=== PATIENT | male | born 1945 | race Caucasian/White ===

== ENCOUNTER 2018-08-22 17:17 | Inpatient (IN) | payer BC, OTHER ==
[~2018-08-22] VITALS: Ht 175.3 cm; Wt 71.4 kg
[2018-08-22 17:35] VITALS: Ht 175.3 cm; Wt 71.4 kg
--- NOTE | 2018-08-22 18:10 | NUR ---
PT AWAKE AND ALERT. PT C/O "WOMEN'S TOY" IN RECTUM. NAD. RESP E/U.
--- NOTE | 2018-08-22 18:47 | NUR ---
DR ADLER AT BEDSIDE FOR MSE
[2018-08-22 19:15] LABS: BASOPHIL % 0.3 % (0-2); PLATELET COUNT 235 x10^3mcL (130-400); RED CELL DISTRIBUTION WIDTH 13.3 % (11.5-14.5)
--- NOTE | 2018-08-22 19:16 | NUR ---
RECEIVED REPORT FROM MICA HDZ FOR FURTHER CARE OF PATIENT.
--- NOTE | 2018-08-22 19:16 | NUR ---
report given to edel mold shifter nurse to assume care of pt
[2018-08-22 19:36] LABS: ALBUMIN 3.9 g/dL (3.4-5.0); ALKALINE PHOSPHATASE 91 U/L (46-116); ALT/SGPT 33 U/L (16-63); AST/SGOT 39 U/L (15-37); BILIRUBIN TOTAL 1.95 mg/dL (0.20-1.00); CALCIUM 9.5 mg/dL (8.5-10.1); CARBON DIOXIDE 24.3 mmol/L (21-32); CHLORIDE SERUM 102 mmol/L (98-107); CREATININE SERUM 0.9 mg/dL (0.7-1.3); GLUCOSE SERUM 130 mg/dL (74-106); POTASSIUM SERUM 3.5 mmol/L (3.5-5.1); SODIUM SERUM 137 mmol/L (136-145); TOTAL PROTEIN, SERUM 7.9 g/dL (6.4-8.2)
--- NOTE | 2018-08-22 20:22 | NUR ---
PATIENT AMBULATED TO BATHROOM- GAIT STEADY
[2018-08-22 21:46] LABS: MAGNESIUM 2.3 mg/dL (1.8-2.4); PHOSPHOROUS 3.4 mg/dL (2.5-4.9)
[2018-08-22 22:03] VITALS: BP 170/95
--- NOTE | 2018-08-22 22:05 | NUR ---
RECEIVED PT FROM ED VIA NINFA. ORIENTED PT TO ROOM AND SURROUNDINGS. IV NOTED TO LAC PATENT AND INTACT. INSTRUCTED PT ON THE USE OF CALL LIGHT FOR ASSISTANCE. ENDORSE PT TO PRIMARY NURSE WAI
--- NOTE | 2018-08-22 22:27 | NUR ---
PATIENT COMPLAINED OF RECTAL PAIN RATED AT 6/10 MEDICATED PRN.
[2018-08-22 23:00] VITALS: BP 105/68
--- NOTE | 2018-08-22 23:00 | NUR ---
PATIENT BP UPON ARRIVAL TO THE FLOOR WAS ON THE HIGH SIDE, PATIENT HAD COMPLAINED OF RECTAL PAIN RATED BETWEEN 5-6/10, MEDICATED WITH NORCO AND WAS RECHECKED AFTERWARDS WAS 105/68, HR=78BPM. RECORDED . WILL CONTINUE TO MONITOR.
--- NOTE | 2018-08-23 01:38 | NUR ---
VOIDED PER URINAL, UA COLLECTED SEND TO LAB.
[2018-08-23 02:34] LABS: microscopic required? YES; urine erythrocyte NEGATIVE (NEGATIVE)
[2018-08-23 02:42] LABS: AMPHETAMINE QUAL UR NONE DETECTED (See below)
[2018-08-23 05:14] VITALS: BP 132/79
--- NOTE | 2018-08-23 05:32 | NUR ---
CHLORHEXIDINE BATH ADMINISTERED BY CIRCULATOR THIS TIME, PATIENT INFORMED ABOUT PURPOSE OF BATH.
--- NOTE | 2018-08-23 06:33 | NUR ---
PATIENT HAD A RESTFUL NIGHT, WAS MEDICATED X1 WITH NORCO AND RECEIVED RELIEF, HAD BEEN NPO [facility], PATIENT AWARE ABOUT SURGERY THIS AM, WANTS TO SPEAK WITH SURGEON BEFORE SIGNING CONSENT. IV SITE NO SIGN OF INFILTRATION. SAFETY PRECAUTIONS MAINTAINED. WILL ENDORSED CONTINUITY OF CARE TO INCOMING NURSE.
[2018-08-23 06:40] LABS: CALCIUM 8.8 mg/dL (8.5-10.1); CARBON DIOXIDE 25.8 mmol/L (21-32); CHLORIDE SERUM 105 mmol/L (98-107); CREATININE SERUM 0.8 mg/dL (0.7-1.3); GLUCOSE SERUM 110 mg/dL (74-106); MAGNESIUM 2.4 mg/dL (1.8-2.4); PHOSPHOROUS 2.6 mg/dL (2.5-4.9); POTASSIUM SERUM 3.7 mmol/L (3.5-5.1); SODIUM SERUM 139 mmol/L (136-145)
[2018-08-23 06:53] LABS: BASOPHIL % 0.2 % (0-2); PLATELET COUNT 216 x10^3mcL (130-400); RED CELL DISTRIBUTION WIDTH 13.8 % (11.5-14.5)
--- NOTE | 2018-08-23 07:05 | NUR ---
RECEIVED BEDSIDE REPORT FROM CARD SCRAPER NURSE AT THIS TIME. PATIENT RESTING COMFORTABLY IN BED. NO APPARENT DISTRESS OR DISCOMFORT NOTED. BREATHING EVEN AND UNLABORED. NO RESPIRATORY DISTRESS OR DISCOMFORT NOTED. IV PATENT AND INTACT. ALL QUESTIONS AND CONCERNS ADDRESSED. ALL NEEDS ATTENDED TO. WILL CONTINUE TO MONITOR
--- NOTE | 2018-08-23 07:12 | NUR ---
BEDSIDE REPORT AND INTRODUCTION PERFORMED WITH INCOMING NURSE BRAD.
--- NOTE | 2018-08-23 07:41 | NUR ---
PATIENT DOWN FOR PROCEDURE AT THIS TIME. ALL NEEDS ATTENDED TO. WILL CONTINUE TO MONITOR
[2018-08-23 09:16] VITALS: BP 108/61
--- NOTE | 2018-08-23 09:44 | NUR ---
RECEIVED PATIENT BACK FROM OR AT THIS TIME. PATIENT RESTING COMFORTABLY IN BED. NO APPARENT DISTRESS OR DISCOMFORT. PATIENT REQUESTING FAMILY NOT TO BE CALLED AT THIS TIME. ALL QUESTIONS AND CONCERNS ADDRESSED. ALL NEEDS ATTENDED TO. WILL CONTINUE TO MONITOR
--- NOTE | 2018-08-23 13:12 | NUR ---
PATIENT SITTING UP IN BED EATING LUNCH AT THIS TIME. PATIENT TOLERATING DIET WELL. NO APPARENT DISTRESS OR DISCOMFORT NOTED. ALL NEEDS ATTENDED TO. WILL CONTINUE TO MONITOR
--- NOTE | 2018-08-23 16:10 | NUR ---
SPOKE TO DR PRADO REGARDING PATIENT DISCHARGE; PER DR SILVER BRUCE TO PLAN HOME D/C TODAY. PER DR PRADO, PATIENT IS TO BE OBSERVED ONE MORE NIGHT AND WILL PLAN FOR DISCHARGE TOMORROW 08/24. ALL QUESTIONS AND CONCERN ADDRESSED. PATIENT MADE AWARE. ALL NEEDS ATTENDED TO. WILL CONTINUE TO MONITOR
--- NOTE | 2018-08-23 17:50 | NUR ---
PATIENT SITTING UP IN BED EATING DINNER AT THIS TIME. PATIENT TOLERATING DIET WELL. NO APPARENT DISTRESS OR DISCOMFORT NOTED. ALL NEEDS ATTENDED TO. WILL CONTINUE TO MONITOR
[2018-08-23 17:56] VITALS: BP 121/68
--- NOTE | 2018-08-23 18:39 | NUR ---
PATIENT RESTING COMFORTABLY IN BED AT THIS TIME. NO APPARENT DISTRESS OR DISCOMFORT NOTED. IV PATENT AND INTACT. ALL QUESTIONS AND CONCERNS ADDRESSED. SAFETY PRECAUTIONS MAINTAINED. ALL NEEDS ATTENDED TO. WILL ENDORSE ALL CARE TO GAMEROOM TECHNICIAN NURSE
--- NOTE | 2018-08-23 19:15 | NUR ---
RECEIVED PT FROM DAY SHIFT RN. PT IS ALERT AND ORIENTED AND IS CURRENTLY RESTING IN BED. PT DENIES ANY PAIN AT THIS TIME. ON ASSESSMENT THERE ARE NO SIGNS OR SYMPTOMS OF CHEST PAIN/SHORTNESS OF BREATH ON ROOM AIR. THERE ARE NO USE OF ACCESSORY MUSCLES OR LABORED BREATHING. PT IS AMBULATORY INDEPENDENTLY AND STATES THAT HE IS ABLE TO USE THE RESTROOM ON HIS OWN. INSTRUCTED PT TO CALL FOR ASSISTANCE IF HE NOTICES IN RECTAL BLEEDING OR PAIN WHEN ATTEMPTING TO USE THE RESTROOM AND PRODUCE A BOWEL MOVEMENT.SAFETY MEASURES ARE IN PLACE. BED IN LOWEST POSITION. CALL LIGHT WITHIN REACH. WILL CONTINUE TO MONITOR.
[2018-08-23 20:57] VITALS: BP 124/69
--- NOTE | 2018-08-24 04:40 | NUR ---
PT RESTING IN BED WITH EYES CLOSED. NO DISTRESS NOTED. BREATHING IS EVEN UNLABORED.
[2018-08-24 05:23] VITALS: BP 126/68
[2018-08-24 06:38] LABS: BASOPHIL % 0.1 % (0-2); PLATELET COUNT 197 x10^3mcL (130-400); RED CELL DISTRIBUTION WIDTH 13.8 % (11.5-14.5)
[2018-08-24 06:41] LABS: CALCIUM 8.6 mg/dL (8.5-10.1); CARBON DIOXIDE 25.3 mmol/L (21-32); CHLORIDE SERUM 104 mmol/L (98-107); GLUCOSE SERUM 99 mg/dL (74-106); POTASSIUM SERUM 3.8 mmol/L (3.5-5.1); SODIUM SERUM 138 mmol/L (136-145)
--- NOTE | 2018-08-24 07:03 | NUR ---
RECEIVED BEDSIDE REPORT FROM ENGINEER FISHING VESSEL NURSE AT THIS TIME. PATIENT RESTING COMFORTABLY IN BED. NO APPARENT DISTRESS OR DISCOMFORT NOTED. BREATHING EVEN AND UNLABORED. NO RESPIRATORY DISTRESS NOTED. PATIENT DENIES CHEST PAIN/PRESSURE AT THIS TIME. IV PATENT AND INTACT. ALL QUESTIONS AND CONCERNS ADDRESSED. ALL NEEDS ATTENDED TO. WILL CONTINUE TO MONITOR
[2018-08-24 09:21] VITALS: BP 131/68
[2018-08-24 10:01] VITALS: BP 131/68
--- NOTE | 2018-08-24 11:16 | NUR ---
PATIENT STABLE TO BE DISCHARGED TO HOME. DISCHARGE INSTRUCTIONS GIVEN WELL EDUCATION. INSTRUCTED PATIENT ABOUT FOLLOW UP APPOINTMENT. PATIENT VERBALIZES UNDERSTANDING. IV REMOVED WITH CATH INTACT. ID BANDS REMOVED. ALL PERSONAL BELONGINGS WITH PATIENT. ALL QUESTIONS AND CONCERNS ADDRESSED. ALL NEEDS ATTENDED TO. AWAITING TRANSPORTATION AT THIS TIME
--- NOTE | 2018-08-24 12:35 | NUR ---
PATIENT ESCORTED DOWN TO LOBBY BY LEAD SYSTEMS ARCHITECT AT THIS TIME. ALL PERSONAL BELONGINGS WITH PATIENT. ALL NEEDS ATTENDED TO. WILL CONTINUE TO MONITOR
== END 2018-08-24 12:35 | disposition home or self-care (01) | DRG 395 ==
LOC: ED 17:17 → MU 20:48
PROVIDERS: Specialist; Surgery; ADMIT Internal Medicine
PROC: 0DCP7ZZ Extirpation of Matter from Rectum, Via Natural or Artificial Opening (ICD-10-PCS; principal; 2018-08-23 08:30)
DX: T18.5XXA Foreign body in anus and rectum, initial encounter (principal); X58.XXXA Exposure to other specified factors, initial encounter; E80.6 Other disorders of bilirubin metabolism; D72.829 Elevated white blood cell count, unspecified; I10 Essential (primary) hypertension; Y93.89 Activity, other specified; Y92.89 Other specified places as the place of occurrence of the external cause; Y99.8 Other external cause status
CPT/HCPCS: G0378; J2250; J2405; J2704; J3010; J7030; J7042; J7120